=== PATIENT | female | born 1940 | race Caucasian/White ===

== ENCOUNTER 2017-08-25 07:23 | Inpatient (IN) | payer MEDICARE ==
[~2017-08-25 07:23] MED LIST: Buffered Lidocaine 0.9% SYRIN* 5 ML/SYR SYRINGE INTRADERM ONE; Dexamethasone IV* 4 MG/ML 1 ML (4 MG) IV SLOW PU ONE; Famotidine IV* 10 MG/ML 2 ML (20 mg) IV ONE; Sodium Citrate/Citric Acid* 15 ML UDC PO ONE
[2017-08-25] MEDS ORDERED: Lidocaine 1% MPF wEPI 200,000* 30 ML SDV ONE (07:25)
[2017-08-25] MEDS ORDERED: Bacitracin IV* 50,000 UNITS INJ ONE (07:25)
[2017-08-25] MEDS ORDERED: Thrombin 5,000 UNITS* 1 APPLIC KIT - topical use - TOPICAL ONE (07:25)
[2017-08-25] MEDS ORDERED: Dexamethasone IV* 4 MG/ML 1 ML (4 MG) ONE (07:55)
[2017-08-25] MEDS ORDERED: Famotidine IV* 10 MG/ML 2 ML (20 mg) ONE (07:55)
[2017-08-25] MEDS ORDERED: Buffered Lidocaine 0.9% SYRIN* 5 ML/SYR SYRINGE ONE (07:55)
[2017-08-25] MEDS ORDERED: Clindamycin 900 MG IVPREMIX(* 900 MG/50 ML SDV IV ONE (07:55)
[2017-08-25] MEDS ORDERED: Sodium Citrate/Citric Acid* 15 ML UDC ONE (07:55)
[2017-08-25] MEDS ORDERED: Rocuronium* 10 MG/ML VIAL ONE (08:42)
[2017-08-25] MEDS ORDERED: fentaNYL* 50 MCG/ML 2 ML VIAL (100 MCG VIAL) ONE ×3 (09:00→11:29)
[2017-08-25] MEDS ORDERED: Midazolam* 1 MG/ML 2 ML VIAL (2 MG) ONE (09:00)
[2017-08-25] MEDS ORDERED: Ondansetron INJ* 2 MG/ML VIAL ONE (09:51)
[2017-08-25] MEDS ORDERED: EPHEDrine (Pressors)* 50 MG/ML VIAL ONE (09:51)
[2017-08-25] MEDS ORDERED: Glycopyrrolate IV* 0.2 MG/ML 1 ML VIAL ONE (09:59)
[2017-08-25] MEDS ORDERED: Neostigmine Methylsulfate* 2 MG/2 ML SYRINGE ONE (09:59)
[2017-08-25] MEDS ORDERED: Ondansetron INJ* 2 MG/ML VIAL IV PRN ×2 (10:00→10:40)
[2017-08-25] MEDS ORDERED: PROCHLORPERAZINE INJ 5 MG/ML 2 ML VIAL IV PRN (10:00)
[2017-08-25] MEDS ORDERED: diPHENhydraMINE IV* 50 MG/ML 1 ml VIAL (BENADRYL) IV PRN (10:00)
[2017-08-25] MEDS ORDERED: HYDROmorphone INJ* 1 MG/ML CARPUJECT SYRINGE IV PRN (10:00)
[2017-08-25] MEDS ORDERED: oxyCODONE/Acetamin 5/325 MG* TAB PO PRN (10:00)
[2017-08-25] MEDS ORDERED: Scopolamine 1.5 mg* PATCH TRANSDERM PRN (10:00)
[2017-08-25] MEDS ORDERED: Naloxone* 0.4 MG/ML 1 ML VIAL IV PRN (10:00)
[2017-08-25] MEDS ORDERED: Sterile Water for Inj* 10 ML ONE (10:14)
[2017-08-25] MEDS ORDERED: Phenylephrine INJ* 10 MG/ML 1 ML VIAL (10 MG) ONE (10:14)
[2017-08-25] MEDS ORDERED: Magnesium Hydroxide LIQ* 30 ML UDC PO PRN (10:40)
[2017-08-25] MEDS ORDERED: Acetaminophen TAB* 325 MG PO PRN (10:40)
[2017-08-25] MEDS: fentaNYL* 50 MCG/ML 2 ML VIAL (100 MCG VIAL) IV PRN ×3 (11:01→11:30)
[2017-08-25] MEDS ORDERED: HYDROcodone/ACETAMIN 5-325 MG* 1 TAB ONE ×2 (11:29→12:14)
[2017-08-25] MEDS: HYDROcodone/ACETAMIN 5-325 MG* 1 TAB PO PRN ×2 (11:30→12:15)
[2017-08-25] MEDS ORDERED: HYDROmorphone INJ* 2 MG/ML CARPUJECT SYRINGE ONE (11:53)
--- NOTE | 2017-08-25 12:48 | RAD ---
HISTORY: Decompressive lumbar laminectomy COMPARISONS: MRI dated March 09, 2017 VIEWS: 1 , lateral portable crosstable view of the lumbar spine 9:58 AM FINDINGS: A portable lateral crosstable view of the lumbar spine is submitted. Counting from L5 as the last lumbar type vertebral body, a metallic probe is noted opposite of L3-L4 IMPRESSION: LIMITED PORTABLE VIEW OF THE LUMBAR SPINE FOR LOCALIZATION DURING SPINAL SURGERY.
[2017-08-25] MEDS: Metoprolol Succinate XL TAB* 100 MG PO SCH (22:43)
--- NOTE | 2017-08-26 08:05 | PN ---
Progress Note - Progress Note Date of Service: 08/26/17 SOAP: Subjective: []POD # 1 C/O incisional pain Has been up only to bathroom Moderate drain output Objective: []Moderate drain output Neuro intact Assessment: []Slow progress post op Plan: [] PT eval Rehab screen
[2017-08-26] MEDS: Lisinopril TAB* 10 MG PO SCH (09:15)
[2017-08-26] MEDS: HYDROcodone/ACETAMIN 5-325 MG* 1 TAB PO PRN ×2 (09:28→20:15)
[2017-08-26] MEDS: Metoprolol Succinate XL TAB* 100 MG PO SCH (17:12)
[2017-08-27] MEDS: HYDROcodone/ACETAMIN 5-325 MG* 1 TAB PO PRN (07:13)
[2017-08-27] MEDS: Lisinopril TAB* 10 MG PO SCH (08:13)
--- NOTE | 2017-08-27 09:14 | PN ---
Progress Note - Progress Note Date of Service: 08/27/17 SOAP: Subjective: [S/p decompressive lumbar laminectomy L3-4, POD #2. Pre-op symptoms improving. Patient feeling slightly fatigued post-op. Pain well controlled with PO meds. Working with PT. ] Objective: [ Vital Signs: Temp Pulse Resp BP Pulse Ox 97.5 F 97 16 118/63 97 08/27/17 07:58 08/27/17 07:58 08/27/17 07:58 08/27/17 07:58 08/27/17 07:58 General: Alert and oriented. No distress. Neuro: Motor and sensory intact. Incision: Intact, no swelling. Wound drain in place and functioning well. Extremities: Full ROM Wound drain output 08/25/17 08/25/17 08/25/17 12:15 16:00 20:01 Output, GIOVANNI #1 60 70 30 08/26/17 08/26/17 08/26/17 00:46 05:01 08:00 Output, GIOVANNI #1 50 18 20 08/26/17 08/26/17 08/26/17 14:00 18:00 22:00 Output, GIOVANNI #1 40 30 10 08/27/17 08/27/17 04:04 08:03 Output, GIOVANNI #1 20 11 ] Assessment: [Satisfactory post-op. Pre-op symptoms improved. ] Plan: [1. PMRU to evaluate today. 2. Continue pain management. 3. Continue PT.]
[2017-08-27] MEDS: Metoprolol Succinate XL TAB* 100 MG PO SCH (18:08)
[2017-08-28] MEDS: HYDROcodone/ACETAMIN 5-325 MG* 1 TAB PO PRN (00:07)
[2017-08-28] MEDS: Lisinopril TAB* 10 MG PO SCH (09:50)
[2017-08-28] MEDS ORDERED: Scopolamine PATCH Remove* 1 NOTE MISC PATCH OFF ONE (10:01)
--- NOTE | 2017-08-28 14:29 | PN ---
Progress Note - Progress Note Date of Service: 08/28/17 SOAP: Subjective: [Patient seen and examined this morning 0800. Continues to feel slightly fatigued post-operatively. Low back soreness. Able to get up out of bed without difficulty. Working with PT. ] Objective: [ Vital Signs: Temp Pulse Resp BP Pulse Ox 97.9 F 96 16 118/67 98 08/28/17 11:19 08/28/17 11:19 08/28/17 11:19 08/28/17 11:19 08/28/17 11:19 General: Alert and oriented, no distress. Neuro: Motor and sensory intact. Incision: Intact with gracie. Mild ecchymosis. Wound drain discontinued today without complication. Extremities: Full ROM Wound drain output 08/25/17 08/25/17 08/25/17 12:15 16:00 20:01 Output, GIOVANNI #1 60 70 30 08/26/17 08/26/17 08/26/17 00:46 05:01 08:00 Output, GIOVANNI #1 50 18 20 08/26/17 08/26/17 08/26/17 14:00 18:00 22:00 Output, GIOVANNI #1 40 30 10 08/27/17 08/27/17 08/27/17 04:04 08:03 12:30 Output, GIOVANNI #1 20 11 15 08/27/17 08/28/17 08/28/17 20:18 00:29 06:03 Output, GIOVANNI #1 20 10 8 ] Assessment: [Satisfactory post-op.] Plan: [1. Discharge home today. 2. Discharge instructions discussed with the patient. ]
[2017-08-28 15:48] VITALS: BP 116/70
--- NOTE | 2017-09-02 03:43 | OP ---
DATE OF OPERATION: 08/25/17 - ROOM #351 DATE OF : 44 PRIMARY SURGEON: Bart Loyola MD FILAMENT CUTTER: HUGH Mckay ANESTHESIA: General. PRE-OP DIAGNOSIS: Lumbar spinal stenosis, L3-4. POST-OP DIAGNOSIS: Lumbar spinal stenosis, L3-4. OPERATIVE PROCEDURE: Decompressive lumbar laminectomy L3-4 with bilateral foraminotomies L3-4. DESCRIPTION OF PROCEDURE: After satisfactory general anesthesia was obtained, the patient was placed on the operating room table in the prone position with the chest supported in the Bg table with care taken that her ileostomy was not compressed. The lumbar region was then clipped, prepped and draped in sterile manner for lumbar laminectomy and a skin incision outlined from L3-L5. This incision was infiltrated with 1% Xylocaine with epinephrine after which turned down sharply into the level of the lumbar fascia. The fascia was divided along its spinous processes of L3 and L4 and paraspinal musculature was stripped away from these posterior elements utilizing the periosteal elevator and monopolar cautery. There was noted to be marked bony hypertrophy with her facets practically touching in the midline. An intraoperative x-ray was obtained verifying localization of the L3-4 interspace after which the initial step in the decompression was removal of the spinous process of L3 and the superior aspect of the spinous process of L4. The Midas Darek drill was then used to thin out the remaining portion of the base of the spinous process of L3 as well as the medial facet complex. A decompression was then carried out superiorly until attachment of ligamentum of flavum was taken down. Ligamentum was noted to be thickened as well. The decompression was then carried inferiorly until thickened ligament and bony hypertrophy had been removed from both lateral gutters. A generous foraminotomy was performed over both L4 nerve roots. The disk was palpated and was noted to be heaped up but firm and was not disturbed. There was never any marked dural compression from the component of spondylolisthesis at this level. At the conclusion of the decompression, the nerve roots were noted to be free in their course. The wound was then thoroughly irrigated after which a drain was placed in the epidural space and tunneled out toward the left side. The fascia was reapproximated with 0 Vicryl suture. The subcutaneous tissue was closed with 3-0 Vicryl suture and the skin closed with skin clips. The estimated blood loss was less than 50 cc and the final sponge, padding, and needle counts were correct. The patient was taken to the recovery room, extubated, and in stable condition. [id number]/[facility] #: [id number] MTDD
--- NOTE | 2017-09-02 22:35 | DS ---
DISCHARGE SUMMARY: DATE OF ADMISSION: 08/25/17 DATE OF DISCHARGE: 08/28/17 ATTENDING PHYSICIAN: Dr. Loyola.* (DICTATED BY HUGH MICHAEL) DISCHARGE DIAGNOSES: 1. Lumbar spondylosis, L3-4. 2. History of pulmonary embolism. 3. Hypertension. 4. Colitis. SPECIAL PROCEDURES: Decompressive lumbar laminectomy, L3-4. HOSPITAL COURSE: This 77-year-old female was seen in office with symptomatic lumbar stenosis consistent with MRI findings of stenosis at L3-4. She has been experiencing symptoms for at least the previous 7 months and had failed to improve with epidural steroid injection. She, therefore, wished to proceed with surgical treatment. On the day of admission, she was taken to surgery, where under general anesthesia a decompressive lumbar laminectomy, L3-4, operation was carried out. Postoperatively, she was feeling well, although she continues to have some difficulty getting up out of bed and ambulating. Pain is well controlled with oral pain medications. She is eating, drinking, and voiding without difficulty. She did require some assistance when getting up out of bed and used her walker. On the first postoperative day and subsequent postop day, she was seen and evaluated and treated by Physical Therapy. On the third postoperative day, the wound drain was discontinued and she was discharged home. She had improved and was able to get up out of bed and ambulate independently at this point. Pain continued to be well controlled with oral pain medication. Visiting nurse services were arranged. DISCHARGE MEDICATIONS: [place] 5/325 mg 1 to 2 tabs by mouth every 4 hours as needed for pain. FOLLOWUP: She will be seen in office in approximately 7 to 10 days. DISCHARGE INSTRUCTIONS: Wound care and activity level are discussed with the patient and information on this was provided. HUGH MICHAEL [id number]/[facility] #: [id number] POLI
== END 2017-08-28 16:35 | disposition home health service (06) | DRG 519 ==
LOC: OR 07:23 → SSU 08:06 → OBSVTOIN 08-26 08:06
PROVIDERS: ADMIT Neurological Surgery; ATTEND Neurological Surgery
PROC: 0SB20ZZ Excision of Lumbar Vertebral Disc, Open Approach (ICD-10-PCS; 2017-08-25)
PROC: 01NB0ZZ Release Lumbar Nerve, Open Approach (ICD-10-PCS; principal; 2017-08-25 09:30)
DX: M48.062 Spinal stenosis, lumbar region with neurogenic claudication (principal); K51.90 Ulcerative colitis, unspecified, without complications; E66.3 Overweight; M47.816 Spondylosis without myelopathy or radiculopathy, lumbar region; I10 Essential (primary) hypertension; H35.30 Unspecified macular degeneration; G89.29 Other chronic pain; M43.16 Spondylolisthesis, lumbar region; F41.9 Anxiety disorder, unspecified; Z88.0 Allergy status to penicillin; Z86.711 Personal history of pulmonary embolism; Z93.2 Ileostomy status; Z72.89 Other problems related to lifestyle; Z80.3 Family history of malignant neoplasm of breast; Z83.511 Family history of glaucoma; Z68.32 Body mass index [BMI] 32.0-32.9, adult
CPT/HCPCS: 72100; A9270-GY; G0378; J1100; J1170; J2001; J2250; J2405; J3010

== ENCOUNTER 2017-12-08 06:17 | Inpatient (IN) | payer MEDICARE ==
[~2017-12-08 06:17] MED LIST changes: -Dexamethasone IV* 4 MG/ML 1 ML (4 MG) IV SLOW PU ONE; -Famotidine IV* 10 MG/ML 2 ML (20 mg) IV ONE; -Sodium Citrate/Citric Acid* 15 ML UDC PO ONE
[2017-12-08] MEDS ORDERED: Lidocaine 1% MPF wEPI 200,000* 30 ML SDV ONE (06:44)
[2017-12-08] MEDS ORDERED: Thrombin 5,000 UNITS* 1 APPLIC KIT - topical use - TOPICAL ONE (06:44)
[2017-12-08] MEDS ORDERED: Bacitracin IV* 50,000 UNITS INJ ONE (06:44)
[2017-12-08] MEDS ORDERED: Buffered Lidocaine 0.9% SYRIN* 5 ML/SYR SYRINGE ONE (06:45)
[2017-12-08] MEDS ORDERED: Clindamycin 900 MG IVPREMIX(* 900 MG/50 ML SDV IV ONE (06:45)
[2017-12-08] MEDS ORDERED: Rocuronium* 10 MG/ML VIAL ONE (07:35)
[2017-12-08] MEDS ORDERED: Propofol* 10 MG/ML 20 ML BTL IV PUSH ONE (07:35)
[2017-12-08] MEDS ORDERED: fentaNYL* 50 MCG/ML 2 ML VIAL (100 MCG VIAL) ONE ×2 (07:35→12:24)
[2017-12-08] MEDS ORDERED: Lidocaine 2% PF * 5 ML VIAL ONE (07:36)
[2017-12-08] MEDS ORDERED: EPHEDrine (Pressors)* 50 MG/ML VIAL ONE (08:20)
[2017-12-08] MEDS ORDERED: fentaNYL* 50 MCG/ML 5 ML VIAL (250 MCG VIAL) ONE (08:20)
[2017-12-08] MEDS ORDERED: Naloxone* 0.4 MG/ML 1 ML VIAL IV PRN (08:47)
[2017-12-08] MEDS ORDERED: oxyCODONE TAB* 5 MG TAB PO PRN (08:47)
[2017-12-08] MEDS ORDERED: Acetaminophen TAB* 325 MG PO PRN ×2 (08:47→11:25)
[2017-12-08] MEDS ORDERED: DiMENhydriNATE IV* 50 MG/ML VIAL IV PUSH PRN (08:47)
[2017-12-08] MEDS ORDERED: Ondansetron INJ* 2 MG/ML VIAL IV PRN ×2 (08:47→11:25)
[2017-12-08] MEDS ORDERED: Ketorolac INJ* 30 MG/ML 1 ML VIAL IV PRN (08:47)
[2017-12-08] MEDS ORDERED: fentaNYL* 50 MCG/ML 2 ML VIAL (100 MCG VIAL) IV PRN (08:47)
[2017-12-08] MEDS ORDERED: HYDROmorphone INJ* 1 MG/ML CARPUJECT SYRINGE IV PRN (08:47)
[2017-12-08] MEDS ORDERED: Magnesium Hydroxide LIQ* 30 ML UDC PO PRN (11:25)
--- NOTE | 2017-12-08 12:59 | RAD ---
CPT II Codes: G9500 INDICATION: Chronic low back pain TECHNIQUE: Intraoperative fluoroscopy was provided during decompressive lumbar laminectomy with instrumentation. FINDINGS: 4 spot films depict placement of 8 transpedicular screws from L1 through L5.. Fluoroscopy time: 11.73 seconds IMPRESSION: As above.
--- NOTE | 2017-12-08 13:00 | RAD ---
HISTORY: DECOMPRESSIVE LUMBAR LAMINECTOMY WITH INSTRUMENTAT COMPARISONS: October 26, 2017 MRI VIEWS: 2 , portable intraoperative views of the lumbar spine at 925 at 9:45 AM malposition a spinal surgery FINDINGS: Submitted for review a portable views of the lumbar spine during spinal surgery. There is transitional anatomy. Using the counting scheme described in the previous MRI, a towel clip is noted opposite the pedicle of L4. A metallic probe is noted opposite of the pedicle of L2. There is anterolisthesis of L3 on L4. IMPRESSION: LIMITED PORTABLE INTRAOPERATIVE VIEW OF THE LUMBAR SPINE FOR LOCALIZATION DURING SPINAL SURGERY
[2017-12-08] MEDS ORDERED: Morphine VIAL* 4 MG/ML VIAL (1 ml vial) IV PRN (14:24)
[2017-12-08] MEDS: HYDROcodone/ACETAMIN 5-325 MG* 1 TAB PO PRN ×2 (14:54→21:33)
[2017-12-08] MEDS: Cyclobenzaprine TAB* 10 MG PO PRN (17:56)
[2017-12-08] MEDS: Metoprolol Succinate XL TAB* 100 MG PO SCH (17:57)
[2017-12-09] MEDS: HYDROcodone/ACETAMIN 5-325 MG* 1 TAB PO PRN ×5 (03:16→23:19)
[2017-12-09 06:02] LABS: ABS Basophils 0 10^3/ul (0-0.2); ABS Eosinophils 0.4 10^3/ul (0-0.6); ABS Lymphocytes 0.4 10^3/ul (1.0-4.8); ABS Monocytes 0.9 10^3/ul (0-0.8); ABS Neutrophils 5.5 10^3/ul (1.5-7.7); ABS Nucleated RBC 0 10^3/ul; Eosinophil % 5.1 % (0-6); Hematocrit 25 % (35-47); Hemoglobin 8.5 g/dl (12.0-16.0); Lymphocyte % 5.6 % (25-47); Mean Corpuscular HGB Conc 34 g/dl (31-36); Mean Corpuscular Hemoglobin 32 pg (27-31); Mean Corpuscular Volume 95 fL (80-97); Mean Platelet Volume 7.5 um3 (7.4-10.4); Nucleated Red Blood Cells % 0; Platelet Count 241 10^3/ul (150-450); Red Blood Count 2.67 10^6/ul (4.00-5.40); Red Cell Distribution Width 13 % (10.5-15); White Blood Count 7.2 10^3/ul (3.5-10.8)
[2017-12-09] MEDS: Metoprolol Succinate XL TAB* 100 MG PO SCH ×2 (08:00→17:17)
--- NOTE | 2017-12-09 08:44 | PN ---
Progress Note - Progress Note Date of Service: 12/09/17 SOAP: Subjective: [S/p lumbar fusion L2-5 and decompression L2-4, POD#1. Patient feeling well this morning, tired. Back pain and soreness with movement, otherwise well controlled. PO [place] and cyclobenzaprine. Denies lower extremity numbness, pain and tingling. Was up to the bathroom once yesterday. ] Objective: [ Vital Signs: Temp Pulse Resp BP Pulse Ox 98.0 F 86 18 92/59 98 12/09/17 07:08 12/09/17 07:08 12/09/17 07:32 12/09/17 07:08 12/09/17 07:32 General: Alert and recumbent in bed. Comfortable. Neuro: Motor and sensory intact. Incision: Intact with graice. No swelling, erythema. Wound drain in place, manipulated and not functioning well. Dressing changed. Wound drain output 12/08/17 12/08/17 12/08/17 12:30 14:00 18:00 Output, GIOVANNI #1 70 70 50 12/08/17 12/08/17 12/08/17 21:30 21:38 22:10 Output, GIOVANNI #1 50 20 15 12/08/17 12/09/17 12/09/17 23:50 02:14 06:08 Output, GIOVANNI #1 25 25 15 Hct 25, Hgb 8.5 this morning. BP 92/59. ] Assessment: [Stable post-op. Pain well controlled. ] Plan: [1. Type and screen 2. Transfuse one unit PRBC 3. Restart IV fluids 4. Continue pain management 5. Discontinue corona 6. Continue to monitor wound drain. 7. PT/OT consults 8. Recheck CBC in AM]
[2017-12-10] MEDS: HYDROcodone/ACETAMIN 5-325 MG* 1 TAB PO PRN (04:33)
[2017-12-10 05:59] LABS: ABS Basophils 0 10^3/ul (0-0.2); ABS Eosinophils 0.4 10^3/ul (0-0.6); ABS Lymphocytes 0.6 10^3/ul (1.0-4.8); ABS Monocytes 1.3 10^3/ul (0-0.8); ABS Neutrophils 8.7 10^3/ul (1.5-7.7); ABS Nucleated RBC 0 10^3/ul; Eosinophil % 3.3 % (0-6); Hematocrit 29 % (35-47); Hemoglobin 9.6 g/dl (12.0-16.0); Lymphocyte % 5.1 % (25-47); Mean Corpuscular HGB Conc 34 g/dl (31-36); Mean Corpuscular Hemoglobin 31 pg (27-31); Mean Corpuscular Volume 92 fL (80-97); Mean Platelet Volume 7.7 um3 (7.4-10.4); Nucleated Red Blood Cells % 0; Platelet Count 254 10^3/ul (150-450); Red Cell Distribution Width 13 % (10.5-15)
--- NOTE | 2017-12-10 08:08 | PN ---
Progress Note - Progress Note Date of Service: 12/10/17 SOAP: Subjective: [S/p lumbar fusion L2-5, POD#2. Reports incisional muscle tightness and soreness, worse with movement. Denies lower extremity numbness, pain. Able to get up slowly with assistance and rolling walker, painful. Pain managed with norco and cyclobenzaprine. Eager to be more mobile.] Objective: [ Vital Signs: Temp Pulse Resp BP Pulse Ox 98.2 F 91 18 127/65 96 12/10/17 07:27 12/10/17 07:27 12/10/17 07:51 12/10/17 07:27 12/10/17 07:27 General: Alert and recumbent in bed. Comfortable. Neuro: Motor and sensory intact. Incision: Wound drain functioning well. Hct 29, Hgb 9.6 this AM Wound drain output 12/08/17 12/08/17 12/08/17 12:30 14:00 18:00 Output, GIOVANNI #1 70 70 50 12/08/17 12/08/17 12/08/17 21:30 21:38 22:10 Output, GIOVANNI #1 50 20 15 12/08/17 12/09/17 12/09/17 23:50 02:14 06:08 Output, GIOVANNI #1 25 25 15 12/09/17 12/09/17 12/09/17 10:04 14:00 19:31 Output, GIOVANNI #1 30 20 50 12/09/17 12/10/17 12/10/17 22:43 01:01 04:32 Output, GIOVANNI #1 25 25 25 12/10/17 07:51 Output, GIOVANNI #1 20 ] Assessment: [Satisfactory post-op course. Drain requires further monitoring, pain management needs improvement.] Plan: [1. PT evaluation today. 2. Continue pain management, Percocet in place of [place]. 3. Up out of bed.]
[2017-12-10] MEDS: Cyclobenzaprine TAB* 10 MG PO PRN ×2 (08:41→15:58)
[2017-12-10] MEDS: Metoprolol Succinate XL TAB* 100 MG PO SCH ×2 (08:41→18:10)
[2017-12-10] MEDS: oxyCODONE/Acetamin 5/325 MG* TAB PO PRN ×3 (10:32→20:07)
--- NOTE | 2017-12-10 13:13 | OP ---
DATE OF OPERATION: 12/08/17 - ROOM #331 DATE OF : 44 SURGEON: Bart Loyola MD ENGINE TURNER: HUGH Mckay ANESTHESIA: General. PRE-OP DIAGNOSIS: Lumbar instability, L3-4. POST-OP DIAGNOSIS: Lumbar instability, L3-4. OPERATIVE PROCEDURE: Lumbar decompression and fusion L2-L5 with posterior segmental instrumentation, revision of lumbar decompression L3-4. DESCRIPTION OF PROCEDURE: After satisfactory general anesthesia was obtained, the patient was placed on the Bg frame in the prone position with the chest supported on the Bg frame chest piece, and the iliac crest and thigh supported as well. The lumbar region was then clipped, prepped, and draped in a sterile manner for lumbar laminectomy and a skin incision outlined from L1 to L5 incorporating a previous decompression incision. This incision was infiltrated with 1% Xylocaine with epinephrine after which it was turned down sharply to the subcutaneous tissues. The fascia was opened along the spinous processes from L1 down to L5 and the paraspinal musculature and scar tissue stripped away from these posterior elements using the periosteal elevator and monopolar cautery. The dissection was carried out laterally on both sides until the transverse processes of L2, L3, L4, and L5 were exposed on either side. Retractors were placed to facilitate exposure. At this point of the procedure, the reference arc for the stereotactic frame was secured to the L5 spinous process. The O-arm intraoperative CT scanner was then brought into the field and an O-arm spin performed to facilitate stereotactic placement of pedicle screws. After confirming the O-arm spin accuracy, screws were placed beginning at L2 on the left side where utilizing stereotactic guidance, a Medtronic Solera screw was placed that measured 5.5 mm in diameter and 45 mm in length. At the L3 level on the left side, a screw that was 5.5 mm in diameter and 50 mm in length was placed. At the L4 level, a screw that was 6.5 mm in diameter and 40 mm in length was placed and at the L5 level on the left, a screw was placed that was 7.5 mm in diameter and 45 mm deep. Attention was then directed to the right side where identical screw widths and lengths were placed utilizing stereotactic navigation. Following placement of the screws, an additional O- arm spin was performed to verify proper screw placement and the screws appeared to be placed in good position. Attention was then redirected to the field where her previous decompression at L3-L4 was skeletonized using sharp and blunt dissection. The previous decompression had left a slight rim of bone remaining of the L3 posterior elements. This was removed by going in at the L2- 3 level and finding normal tissue and then extending inferiorly with the Midas Darek drill and Kerrison's until the small remaining portion of L3 posterior elements had been removed. This took the dissection down into scar tissue at the previous L3-4 level which was not disturbed. After assuring adequate hemostasis, bone were made out of cancellous bone chips and DBX bony matrix and were laid down as a lateral fusion mass to extend from L2 to L5 on either side on top of the transverse processes. It was felt that a satisfactory decompression and fusion had been obtained. After assuring adequate hemostasis, the wound was thoroughly irrigated, after which a drain was placed in the epidural space and tunneled out toward the left side. The fascia was then reapproximated with 0 Vicryl suture. The subcutaneous tissues were closed with 3-0 Vicryl suture and the skin closed with skin clips. The estimated blood loss was 300 cc and the final sponge, padding, and needle counts were correct. The patient was taken to Recovery, extubated, and in stable condition. [id number]/[facility] #: [id number] POLI
[2017-12-11] MEDS: oxyCODONE/Acetamin 5/325 MG* TAB PO PRN ×5 (01:47→21:49)
[2017-12-11 06:03] LABS: ABS Basophils 0 10^3/ul (0-0.2); ABS Eosinophils 0.5 10^3/ul (0-0.6); ABS Lymphocytes 0.5 10^3/ul (1.0-4.8); ABS Neutrophils 5.7 10^3/ul (1.5-7.7); ABS Nucleated RBC 0 10^3/ul; Eosinophil % 6.9 % (0-6); Hematocrit 26 % (35-47); Lymphocyte % 6.7 % (25-47); Mean Corpuscular HGB Conc 35 g/dl (31-36); Mean Corpuscular Hemoglobin 32 pg (27-31); Mean Corpuscular Volume 93 fL (80-97); Mean Platelet Volume 7.3 um3 (7.4-10.4); Nucleated Red Blood Cells % 0; Platelet Count 236 10^3/ul (150-450); Red Blood Count 2.79 10^6/ul (4.00-5.40); Red Cell Distribution Width 13 % (10.5-15); White Blood Count 7.9 10^3/ul (3.5-10.8)
--- NOTE | 2017-12-11 07:59 | PN ---
Progress Note - Progress Note Date of Service: 12/11/17 SOAP: Subjective: [S/p L2-5 fusion, POD #3. Complains of pain with movement, especially getting up out of bed. Unsure if percocet provided better pain control. Denies lower extremity numbness, tingling, pain. Eating and drinking well. Ambulates with assistance and walker. ] Objective: [ Vital Signs: Temp Pulse Resp BP Pulse Ox 98.6 F 80 18 135/71 97 12/11/17 03:27 12/11/17 03:27 12/11/17 03:51 12/11/17 03:27 12/11/17 03:27 General: Alert and recumbent in bed. No acute pain. Neuro: Motor and sensory intact. Incision: Wound drain in place, manipulated and now functioning well. Wound drain output 12/08/17 12/08/17 12/08/17 12:30 14:00 18:00 Output, GIOVANNI #1 70 70 50 12/08/17 12/08/17 12/08/17 21:30 21:38 22:10 Output, GIOVANNI #1 50 20 15 12/08/17 12/09/17 12/09/17 23:50 02:14 06:08 Output, GIOVANNI #1 25 25 15 12/09/17 12/09/17 12/09/17 10:04 14:00 19:31 Output, GIOVANNI #1 30 20 50 12/09/17 12/10/17 12/10/17 22:43 01:01 04:32 Output, GIOVANNI #1 25 25 25 12/10/17 12/10/17 12/10/17 07:51 13:32 14:00 Output, GIOVANNI #1 20 60 0 12/10/17 12/10/17 12/11/17 20:11 23:31 03:29 Output, GIOVANNI #1 60 30 25 12/11/17 06:28 Output, GIOVANNI #1 0 ] Assessment: [Satisfactory post-op. Wound drain requires further monitoring,.] Plan: [1. Continue pain management. 2. Encourage up out of bed. 3. Ambulate as tolerable. 4. Continue monitoring wound drain. ]
[2017-12-11] MEDS: Metoprolol Succinate XL TAB* 100 MG PO SCH ×2 (08:22→17:24)
[2017-12-12] MEDS: oxyCODONE/Acetamin 5/325 MG* TAB PO PRN ×4 (03:15→23:22)
[2017-12-12] MEDS: Metoprolol Succinate XL TAB* 100 MG PO SCH ×2 (07:55→18:09)
--- NOTE | 2017-12-12 23:53 | PN ---
Progress Note - Progress Note Date of Service: 12/12/17 SOAP: Subjective: []Patient seen earlier today. No events ON. Tolerates Po well, ambulates, Voids. Objective: []VSS GIOVANNI drain in place. Output noted Wound s,c,d AAOx3, THAD, CN II-XII grossly intact Motor 4-5/5 all extremities, No pronator drift Sensory grossly intact to light touch. Assessment: []77 yof L2-S1 LDF Plan: []Monitor VS, Neurochecks Monitor GIOVANNI output Encourage ambulation DC planning, possible Thursday. Alondra Camacho MD
[2017-12-13] MEDS: oxyCODONE/Acetamin 5/325 MG* TAB PO PRN ×3 (03:26→19:48)
[2017-12-13] MEDS: Metoprolol Succinate XL TAB* 100 MG PO SCH ×2 (07:35→17:31)
--- NOTE | 2017-12-13 13:11 | PN ---
Progress Note - Progress Note Date of Service: 12/13/17 SOAP: Subjective: [] No events ON. Tolerates Po well, ambulates, Voids. LUE tingling almost resolved , some residual tingling with arm flexion which is intermittent. Objective: []VSS GIOVANNI drain in place. Output noted 150 cc Wound s,c,d AAOx3, THAD, CN II-XII grossly intact Motor 4-5/5 all extremities, No pronator drift Sensory grossly intact to light touch. Assessment: []77 yof L2-S1 LDF Plan: []Monitor VS, Neurochecks Monitor GIOVANNI output, possibly dc tomorrow. Encourage ambulation DC planning, possible Thursday. Alondra Camacho MD
[2017-12-14] MEDS: oxyCODONE/Acetamin 5/325 MG* TAB PO PRN ×2 (01:47→08:18)
[2017-12-14 07:37] VITALS: BP 158/83
[2017-12-14] MEDS: Metoprolol Succinate XL TAB* 100 MG PO SCH (07:50)
--- NOTE | 2017-12-14 07:51 | PN ---
Progress Note - Progress Note Date of Service: 12/14/17 SOAP: Subjective: [S/p lumbar fusion L2-5, POD#6. Feeling well this morning. Ambulating with assistance of walker and staff. Able to get out of bed well, difficulty getting into bed independently. Eating and drinking well. Pain controlled with PO percocet. Denies fever, chills, headache. ] Objective: [ Vital Signs: Temp Pulse Resp BP Pulse Ox 98.7 F 83 16 158/83 98 12/14/17 07:05 12/14/17 07:05 12/14/17 07:05 12/14/17 07:05 12/14/17 07:05 General: Alert and no acute distress. Comfortable recumbent in bed. Neuro: Motor and sensory normal. Incision: Wound drain discontinued today. Incision without erythema, swelling, nontender. Wound drain output 12/12/17 12/12/17 12/12/17 03:17 05:30 14:37 Output, GIOVANNI #1 20 10 40 12/12/17 12/13/17 12/13/17 19:15 01:47 05:55 Output, GIOVANNI #1 30 20 20 12/13/17 12/13/17 12/13/17 12:10 13:59 19:53 Output, GIOVANNI #1 25 15 20 12/14/17 12/14/17 00:51 05:39 Output, GIOVANNI #1 20 15 ] Assessment: [Slow progress, improving. Wound drain has slowed. ] Plan: [1. Discharge to [facility] term rehab today. 2. Discharge instructions discussed. ]
--- NOTE | 2017-12-14 09:26 | DS ---
DISCHARGE SUMMARY: DATE OF ADMISSION: 12/08/17 DATE OF DISCHARGE: 12/14/17 ATTENDING SURGEON: Dr. Bart Loyola * (DICTATED BY HUGH MICHAEL) DISCHARGE DIAGNOSES: 1. Spondylolisthesis L3-L4. 2. Lumbar stenosis. 3. Hypertension. 4. Ulcerative colitis with ileostomy. SPECIAL PROCEDURES: Lumbar fusion with instrumentation L2-L5 with lumbar decompression L2-L4. HOSPITAL COURSE: This 77-year-old female was seen in the office with recurrent low back to lower extremity symptoms. She has a history of recent lumbar decompression L3-L4 on 08/25/17. She was recovering well for several days to weeks, and was participating in physical therapy at home when symptoms returned. Recurrent pain failed to improve with conservative treatments. A MRI was obtained for follow up showing worsening of spondylolisthesis at L3-L4. Surgical intervention was discussed with the patient, and she decided to proceed with this option. On the day of admission she was taken to surgery where under general anesthesia a lumbar fusion with instrumentation at L2-L5 and decompression of L2-L4 operation was carried out. Postoperatively, she was experiencing severe low back pain which was controlled with oral pain medications and muscle relaxants. She was able to get up out of bed with assistance. On the first postoperative day, the Pa catheter was discontinued. She received 1 unit of packed red blood cells due to hematocrit of 25, hemoglobin of 8.5, and a blood pressure of 92/59. She responded well to the blood transfusion. She continued to have low back pain but was tolerating well with oral pain medications. She was up with physical therapy and received occupational therapy as well. The wound drain was left in place due to high volume collection. Possibility of short-term rehab at a nursing facility was discussed with the patient and she decided this would be a good option for her. On the 6th postoperative day, the wound drain was discontinued and she is discharged to [facility] for short-term rehab. She is now ambulating with assistance of a walker. She is eating, drinking, and voiding without difficulty. She continues to have difficulty getting back into bed independently, but is able to get up and ambulate without assistance from staff. DISCHARGE MEDICATIONS: 1. Percocet 5/325 mg two tabs by mouth every 4 hours as needed for pain, max daily dose eight. 2. Cyclobenzaprine 10 mg one tab by mouth up to 3 times daily as needed for muscle spasm and low back pain. FOLLOWUP: This patient will be seen in the office in approximately 10 days for follow up and staple removal. DISCHARGE INSTRUCTIONS: 1. The patient may shower, replace dressing after showering. 2. May discontinue dressing in 3 days. 3. Activity instructions were discussed with the patient and outlined in the discharge packet. HUGH MICHAEL [id number]/[facility] #: [id number] POLI
== END 2017-12-14 09:31 | DRG 460 ==
LOC: OR 06:17 → SSU 13:21
PROVIDERS: ADMIT Neurological Surgery; ATTEND Neurological Surgery
PROC: 0SG10K1 Fusion of 2 or more Lumbar Vertebral Joints with Nonautologous Tissue Substitute, Posterior Approach, Posterior Column, Open Approach (ICD-10-PCS; 2017-12-08)
PROC: 8E0WXBG Computer Assisted Procedure of Trunk Region, With Computerized Tomography (ICD-10-PCS; 2017-12-08)
PROC: 30233N1 Transfusion of Nonautologous Red Blood Cells into Peripheral Vein, Percutaneous Approach (ICD-10-PCS; principal; 2017-12-08 07:30)
DX: M43.16 Spondylolisthesis, lumbar region (principal); K51.90 Ulcerative colitis, unspecified, without complications; M48.061 Spinal stenosis, lumbar region without neurogenic claudication; M85.88 Other specified disorders of bone density and structure, other site; H35.30 Unspecified macular degeneration; I10 Essential (primary) hypertension; H52.13 Myopia, bilateral; H15.833 Staphyloma posticum, bilateral; H18.423 Band keratopathy, bilateral; Z88.0 Allergy status to penicillin; Z86.711 Personal history of pulmonary embolism; Z80.3 Family history of malignant neoplasm of breast; Z80.49 Family history of malignant neoplasm of other genital organs; Z93.2 Ileostomy status; Z83.511 Family history of glaucoma
CPT/HCPCS: 36415; 72100; 76001; 85025; 86850; 86900; 86901; 86922; A9270-GY; C1713; C1776; G8978-GP-CJ; G8979-GP-CI; G8987-GO-CK; G8988-GO-CI; J2001; J2704; J3010; P9040